=== PATIENT | female | born 1985 | race Caucasian/White ===

== ENCOUNTER 2017-04-14 11:57 | Emergency (ER) | payer OTHER ==
[2017-04-14 12:04] VITALS: BP 121/72; PULSE 82; TEMP 98.4; BMI 25.7
[2017-04-14 12:10] LABS: PH,URINE 6.5 (4.5-8); URINE APPEARANCE Clear; URINE BILIRUBIN Negative (NEGATIVE); URINE BLOOD Negative (NEGATIVE); URINE GLUCOSE (UA) Negative (NEGATIVE); URINE KETONE Trace (NEGATIVE); URINE LEUK ESTERASE TRACE (NEGATIVE); URINE NITRITE Negative (NEGATIVE); URINE PROTEIN Negative (NEGATIVE); URINE UROBILINOGEN 0.2 (0.2-1.0)
[2017-04-14 12:11] LABS: URINE COLOR YELLOW
--- NOTE | 2017-04-14 12:30 | PDOC ---
History of Present Illness - General Chief Complaint: Pain, Acute Stated Complaint: right pelvic pain Time Seen by Provider: 04/14/17 12:15 History Source: Patient Exam Limitations: No Limitations - History of Present Illness Initial Comments: 04/14/17 12:26 Healthy 31 yo female, no pmh, no psh, no meds, no birthcontrol, period due any day presents with right adenexal pain. No Tenderness at McBurney's point and no associated constitutional or GI symptoms. Motrin helps with the pain. Timing/Duration: other (worsening over the past two days) Severity: mild, moderate Modifying Factors: worse with: cold therapy, eating, immobilization, medication , movement, rest, other Associated Symptoms: denies: denies symptoms, chest pain, cough, diaphoresis, fever/chills, headaches, loss of appetite, malaise, nausea/vomiting, rash, seizure, shortness of breath, syncope, weakness, other Aspirin Received prior to arrival: Yes: no aspirin today Past History - Past Medical History Allergies/Adverse Reactions: Allergies Allergy/AdvReac Type Severity Reaction Status Date / Time No Known Allergies Allergy Verified 04/14/17 11:58 Home Medications: Ambulatory Orders Bupropion HCl [Wellbutrin -] 60 mg PO DAILY 04/14/17 Cephalexin [Keflex] 500 mg PO QID #40 capsule 04/14/17 Ibuprofen [Motrin -] 600 mg PO QID #28 tablet 04/14/17 Lisdexamfetamine Dimesylate [Vyvanse] 70 mg PO DAILY 04/14/17 COPD: No Psychiatric Problems: Yes (DEPRESSION, ANXIETY, ADD) - Suicide/Smoking/Psychosocial Hx Smoking Status: No Smoking History: Current every day smoker Number of Cigarettes Smoked Daily: 2 Information on smoking cessation initiated: Yes 'Breaking Loose' booklet given: 04/14/17 Hx Alcohol Use: No Drug/Substance Use Hx: No Substance Use Type: None Review of Systems - Review of Systems Able to Perform ROS?: Yes Is the patient limited Faroese proficient: No Constitutional: No: Symptoms Reported HEENTM: No: Symptoms Reported Respiratory: No: Symptoms reported Cardiac (ROS): No: Symptoms Reported ABD/GI: No: Symptoms Reported : Yes: See HPI Musculoskeletal: No: Symptoms Reported Integumentary: No: Symptoms Reported Neurological: No: Symptoms reported Psychiatric: No: Anxiety, Depression Endocrine: No: Symptoms Reported Hematologic/Lymphatic: No: Symptoms Reported All Other Systems: Reviewed and Negative *Physical Exam - Vital Signs Last Vital Signs Temp Pulse Resp BP Pulse Ox 98.4 F 82 16 121/72 100 04/14/17 12:00 04/14/17 12:00 04/14/17 12:00 04/14/17 12:00 04/14/17 12:00 - Physical Exam Comments: 04/14/17 12:28 31 yo female NAD/Nontoxic tender in R adenexal region General Appearance: Yes: Nourished, Appropriately Dressed. No: Apparent Distress HEENT: positive: Normal ENT Inspection Neck: positive: Supple. negative: Tender Respiratory/Chest: positive: Lungs Clear, Normal Breath Sounds Cardiovascular: positive: Regular Rhythm, Regular Rate. negative: Murmur Female Pelvic Exam: positive: other (deferred) Gastrointestinal/Abdominal: positive: Normal Bowel Sounds, Flat Rectal Exam: positive: deferred Lymphatic: negative: Adenopathy, Tenderness Musculoskeletal: positive: Normal Inspection Extremity: positive: Normal Capillary Refill, Normal Inspection, Normal Range of Motion Integumentary: positive: Normal Color, Dry, Warm Neurologic: positive: Fully Oriented, Alert, Normal Mood/Affect ED Treatment Course - LABORATORY CBC & Chemistry Diagram: 04/14/17 12:12 04/14/17 12:12 - ADDITIONAL ORDERS Additional order review: Laboratory Results 04/14/17 12:06 Urine Color Yellow Urine Appearance Clear Urine pH 6.5 Ur Specific [place] 1.020 Urine Protein Negative Urine Glucose (UA) Negative Urine Ketones Trace Urine Blood Negative Urine Nitrite Negative Urine Bilirubin Negative Urine Urobilinogen 0.2 Ur Leukocyte Esterase Trace H Urine HCG, Qual Negative - RADIOLOGY Radiology Studies Ordered: Category Date Time Status TRANSVAGINAL ULTRASOUND US [US] Stat Ultrasound 04/14/17 12:15 Ordered *DC/Admit/Observation/Transfer Diagnosis at time of Disposition: Right ovarian cyst, UTI (urinary tract infection) - Discharge Dispostion Disposition: HOME Condition at time of disposition: Improved Admit: No - Prescriptions Prescriptions: Cephalexin [Keflex] 500 mg PO QID #40 capsule Ibuprofen [Motrin -] 600 mg PO QID #28 tablet - Referrals Referrals: Simone Young MD [Staff Physician] - - Patient Instructions Printed Discharge Instructions: DI for Urinary Tract Infection (UTI), DI for Ovarian Cyst Additional Instructions: Tiki- I know this is not the way you want to spend Thanksgi Day. Rest, Plenty of fluids, Motrin four times a day for pain, Keflex four times a day for infection, eat yogurt inbetween doses. Return to us if worse, follow up with your PMD later next week. You could also follow up with your inspector and tester. Anupam- Dr. Alonzo Beckham - Post Discharge Activity
[2017-04-14 12:33] LABS: URINE RBC 0-3 /hpf (0-3)
[2017-04-14 12:34] LABS: URINE BACTERIA MANY /hpf (NEGATIVE); URINE WBC 0-3 (0-5)
[2017-04-14 12:36] LABS: EOSINOPHIL 2.7 % (0-4.5); MCH 31.6 pg (25.7-33.7); MCHC 33.5 g/dl (32.0-36.0); MEAN CELL VOLUME 94.4 fl (80-96); MEAN PLT VOLUME 8.6 fl (7.5-11.1); NEUTROPHILS 62.9 % (42.8-82.8); PLATELET COUNT 291 K/MM3 (134-434); RDW 13.4 % (11.6-15.6); WHITE BLOOD COUNT 12.5 K/mm3 (4.0-10.8)
[2017-04-14 12:46] LABS: INR 1.03 (0.82-1.09); PROTHROMBIN TIME (PATIENT) 11.5 SEC (10.2-13.0)
[2017-04-14] MEDS ORDERED: CEPHALEXIN MONOHYDRATE 500 MG CAPSULE (UD) PO ONE (12:49)
[2017-04-14 12:51] LABS: ALBUMIN 4.1 g/dl (3.5-5.0); ALK PHOS 50 U/L (32-92); ANION GAP -2 (8-16); BILIRUBIN,TOTAL 0.3 mg/dl (0.2-1.0); CALCIUM 8.6 mg/dl (8.4-10.2); CO2 27 mmol/L (22-28); CREATININE 0.7 mg/dl (0.6-1.3); GLUCOSE,RANDOM 98 mg/dl (74-106); SGOT/AST 16 U/L (10-42); SGPT/ALT 11 U/L (10-40); TOT PROT 6.7 g/dl (6.4-8.3)
[2017-04-14] MEDS ORDERED: CEPHALEXIN MONOHYDRATE 250 MG CAPSULE (FP) ONE (12:59)
== END 2017-04-14 13:59 | disposition home or self-care (01) ==
LOC: FER 11:57
DX: N83.201 Unspecified ovarian cyst, right side (principal); N39.0 Urinary tract infection, site not specified; Z72.0 Tobacco use; F41.8 Other specified anxiety disorders
CPT/HCPCS: 36415; 76856-TC; 80053; 81003; 81015; 84703; 85025; 85610; 87086; 99282-25

== ENCOUNTER 2018-10-22 19:38 | Emergency (ER) | payer OTHER | END 2018-10-22 20:22 | disposition home or self-care (01) | LOC: FER 19:38 ==